=== PATIENT | male | born 1990 | race Two or more races ===

== ENCOUNTER 2021-01-25 19:40 | Emergency (ER) | payer MEDICAID ==
[~2021-01-25] VITALS: Ht 177.8 cm; Wt 81.8 kg
--- NOTE | 2021-01-25 19:48 | NUR ---
medical transcription radiology at bedside to irrigate face per MD order.
[2021-01-25] MEDS ORDERED: normal saline 50ml IV soln 50 ML IV SCH (20:20)
[2021-01-25] MEDS ORDERED: proparacaine 0.5% ophthalmic drops 15ml EACHEYE ONE ×2 (21:40→22:25)
[2021-01-25] MEDS ORDERED: MIDAZolam 1 MG/ML 5ML VIAL IV ONE (22:40)
[2021-01-25] MEDS ORDERED: LIDOcaine 1% W/epiNEPHrine 1:100,000 20ml vial SQ ONE (22:40)
[2021-01-25] MEDS ORDERED: midazolam 1 mg/ML 2ml injection IV ONE (22:45)
[2021-01-25] MEDS ORDERED: midazolam 1 mg/ML 2ml injection IJ ONE (22:45)
[2021-01-25 23:20] VITALS: BP 149/59
== END 2021-01-25 23:21 | disposition short-term general hospital (02) ==
LOC: ER 19:41
DX: H05.231 Hemorrhage of right orbit (principal); F15.90 Other stimulant use, unspecified, uncomplicated
CPT/HCPCS: 70450; 70486; 71045; 72125; 96374; 99291; J2250